=== PATIENT | female | born 1980 | race Caucasian/White ===

== ENCOUNTER → 2018-06-11 | Outpatient (CLI) | payer OTHER ==
[2018-06-11 10:08] LABS: BASOPHILS % (AUTO) 0.3 % (0.0-2.0); EOSINOPHILS % (AUTO) 0.9 % (1.0-6.0); HEMATOCRIT 38.6 % (36-46); HEMOGLOBIN 12.8 g/dL (12.0-16.0); LYMPHOCYTES # (AUTO) 2.1 K/uL (1.0-4.8); MEAN CORPUSCULAR HEMOGLOBIN 29.9 pg (26.0-34.0); MEAN CORPUSCULAR HGB CONC 33.1 G/dL (31.0-37.0); MEAN CORPUSCULAR VOLUME 91 fL (80-100); MONOCYTES # (AUTO) 0.6 K/uL (0.1-1.0); NEUTROPHILS # (AUTO) 6.8 K/uL (1.8-7.7); NEUTROPHILS % (AUTO) 70.8 % (40.0-70.0); PLATELET COUNT (AUTO) 239 K/uL (150-450); RED BLOOD CELL COUNT(AUTO) 4.26 MIL/uL (4.00-5.20); RED CELL DISTRIBUTION WIDTH 14.5 % (11.5-14.5)
[2018-06-11 10:29] LABS: FOLATE SERUM 13.1 ng/mL (5.4-)
[2018-06-11 10:48] LABS: ALANINE AMINOTRANSFERASE 10 U/L (12-78); ALBUMIN 3.3 g/dL (3.4-5.0); ALKALINE PHOSPHATASE 75 U/L (46-116); ANION GAP 11 mmol/L (8-16); ASPARTATE AMINOTRANSFERASE 24 U/L (15-37); BILIRUBIN,TOTAL 0.3 mg/dL (0.1-1.0); CALCIUM, TOTAL 9.1 mg/dL (8.8-10.5); CARBON DIOXIDE 24 mmol/L (22-29); CHLORIDE 101 mmol/L (98-107); CHOL/HDL RATIO 2.9 (3.9-5.7); CHOLESTEROL 231 mg/dL (131-200); CREATININE 0.64 mg/dL (0.60-1.30); GLOMERULAR FILTR. RATE CALC > 60 mL/min (>60); GLUCOSE,RANDOM 75 mg/dL (70-110); HCG,QUANTITATIVE 38821 mIU/mL (0-6); HDL CHOLESTEROL 79 mg/dL (40-60); LDL CHOL (CALC.) 134 mg/dL (0-130); POTASSIUM 4.1 mmol/L (3.5-5.1); SODIUM SERUM 136 mmol/L (136-145); THYROID STIMULATING HORMONE 2.71 uIU/mL (0.36-3.74); TOTAL PROTEIN, SERUM 7.4 g/dL (6.4-8.2); TRIGLYCERIDES 89 mg/dL (15-150); UREA NITROGEN, BLOOD 9 mg/dL (7-18)
== END | disposition home or self-care (01) ==
LOC: LABPV 07:06
PROVIDERS: ATTEND Legal Medicine
DX: Z34.00 Encounter for supervision of normal first pregnancy, unspecified trimester (principal)
CPT/HCPCS: 82306; 82607; 82746; 84443

== ENCOUNTER 2018-06-21 09:14 | Emergency (ER) | payer OTHER ==
[~2018-06-21] VITALS: Ht 170.2 cm; Wt 68.2 kg
[2018-06-21] MEDS ORDERED: PNV11TAB PO (09:26)
[2018-06-21] MEDS ORDERED: CHOL50004 PO (09:26)
[2018-06-21] MEDS ORDERED: FOLI0.4T14 PO (09:26)
[2018-06-21 12:22] VITALS: BP 125/68
== END 2018-06-21 12:23 | disposition home or self-care (01) ==
LOC: EMS 09:15
DX: O26.892 Other specified pregnancy related conditions, second trimester (principal); R10.9 Unspecified abdominal pain; R06.02 Shortness of breath; Z77.098 Contact with and (suspected) exposure to other hazardous, chiefly nonmedicinal, chemicals; Z3A.17 17 weeks gestation of pregnancy
CPT/HCPCS: 76805

== ENCOUNTER → 2018-07-18 | Outpatient (CLI) | payer OTHER ==
[~2018-07-18] MED LIST: CHOL50004 PO; FOLI0.4T14 PO; PNV11TAB PO
[2018-07-18 09:56] LABS: BASOPHILS % (AUTO) 0.4 % (0.0-2.0); EOSINOPHILS % (AUTO) 0.6 % (1.0-6.0); HEMATOCRIT 36.1 % (36-46); HEMOGLOBIN 11.8 g/dL (12.0-16.0); LYMPHOCYTES # (AUTO) 1.8 K/uL (1.0-4.8); LYMPHOCYTES % (AUTO) 19.1 % (22.0-44.0); MEAN CORPUSCULAR HEMOGLOBIN 29.5 pg (26.0-34.0); MEAN CORPUSCULAR HGB CONC 32.6 G/dL (31.0-37.0); MEAN CORPUSCULAR VOLUME 91 fL (80-100); MONOCYTES # (AUTO) 0.5 K/uL (0.1-1.0); NEUTROPHILS # (AUTO) 6.9 K/uL (1.8-7.7); NEUTROPHILS % (AUTO) 74.9 % (40.0-70.0); PLATELET COUNT (AUTO) 238 K/uL (150-450); RED BLOOD CELL COUNT(AUTO) 3.98 MIL/uL (4.00-5.20); RED CELL DISTRIBUTION WIDTH 14.6 % (11.5-14.5)
[2018-07-18 10:15] LABS: BILIRUBIN,URINE NEGATIVE (NEGATIVE); GLUCOSE, URINE (UA) NEGATIVE (NEGATIVE); KETONES,URINE NEGATIVE (NEGATIVE); LEUKOCYTE ESTERASE ,URINE NEGATIVE (NEGATIVE); NITRATE,URINE NEGATIVE (NEGATIVE); OCCULT BLOOD,URINE NEGATIVE (NEGATIVE); PH,URINE 8.5 (5.0-8.0); PROTEIN,URINE NEGATIVE (NEGATIVE)
[2018-07-18 10:36] LABS: APPEARANCE,URINE CLEAR (CLEAR)
[2018-07-18 16:29] LABS: RAPID PLASMA REAGIN NONREACTIVE (NONREACTIVE)
[2018-07-18 16:44] LABS: RUBELLA SCREEN (IGG) IMMUNE (IMMUNE)
[2018-07-19 08:15] LABS: HIV 1-2 SCREEN 4TH GEN W/RFLX Non Reactive (Non Reactive)
== END | disposition home or self-care (01) ==
LOC: LABPV 08:24
PROVIDERS: ATTEND Obstetrics & Gynecology
DX: Z34.82 Encounter for supervision of other normal pregnancy, second trimester (principal); Z31.430 Encounter of female for testing for genetic disease carrier status for procreative management; Z3A.15 15 weeks gestation of pregnancy
CPT/HCPCS: 83021; 84443; 86592; 86762; 86787; 86850; 86900; 86901; 87086; 87340; 87389

== ENCOUNTER 2018-10-04 12:35 | Observation (INO) | payer OTHER ==
[~2018-10-04] VITALS: Ht 162 cm; Wt 68.5 kg
== END 2018-10-04 14:15 | disposition home or self-care (01) ==
LOC: 4S 12:35 → EEVIPCON 12:35
PROVIDERS: ADMIT Obstetrics & Gynecology; ATTEND Obstetrics & Gynecology
DX: O09.523 Supervision of elderly multigravida, third trimester (principal); Z3A.32 32 weeks gestation of pregnancy
CPT/HCPCS: 36415; 81002; 83036; G0378

== ENCOUNTER 2018-10-11 13:00 | Observation (INO) | payer OTHER ==
[~2018-10-11] VITALS: Ht 162.6 cm; Wt 69.9 kg
[2018-10-11 13:44] VITALS: BP 101/58
== END 2018-10-11 14:05 | disposition home or self-care (01) ==
LOC: 4S 13:00
PROVIDERS: ADMIT Obstetrics & Gynecology; ATTEND Obstetrics & Gynecology
DX: O09.523 Supervision of elderly multigravida, third trimester (principal); Z3A.33 33 weeks gestation of pregnancy
CPT/HCPCS: 81002; G0378

== ENCOUNTER 2018-10-18 15:45 | Observation (INO) | payer OTHER ==
[~2018-10-18] VITALS: Ht 162.6 cm; Wt 68.9 kg
[2018-10-18] MEDS: RINGERS SOLUTION,LACTATED 1,000 ML IV SCH ×2 (18:29→20:56)
[2018-10-18 19:15] LABS: GLUCOMETER DEV NAME(LOC) 4S.; GLUCOSE,POINT OF CARE 69 MG/DL (70-110)
[2018-10-18] MEDS ORDERED: NIFEdipine 10 MG CAPSULE PO ONE ×2 (19:45→23:00)
[2018-10-18] MEDS: BETAMETHASONE SOLUSPAN 6 MG/ML 5 ML VIAL IM SCH (21:36)
[2018-10-19] MEDS ORDERED: NIFEdipine 10 MG CAPSULE PO ONE ×3 (03:00→08:15)
[2018-10-19] MEDS: RINGERS SOLUTION,LACTATED 1,000 ML IV SCH ×3 (03:50→12:37)
[2018-10-19 07:40] LABS: GLUCOMETER DEV NAME(LOC) 4S.; GLUCOSE,POINT OF CARE 137 MG/DL (70-110)
[2018-10-19 07:40] LABS: GLUCOMETER DEV NAME(LOC) 4S.; GLUCOSE,POINT OF CARE 102 MG/DL (70-110)
[2018-10-19] MEDS: BETAMETHASONE SOLUSPAN 6 MG/ML 5 ML VIAL IM SCH (10:38)
[2018-10-19 10:56] LABS: GLUCOMETER DEV NAME(LOC) 4S.; GLUCOSE,POINT OF CARE 98 MG/DL (70-110)
[2018-10-19 14:15] LABS: GLUCOMETER DEV NAME(LOC) 4S.; GLUCOSE,POINT OF CARE 125 MG/DL (70-110)
== END 2018-10-19 17:45 | disposition home or self-care (01) ==
LOC: INTOOBSV 15:45 → OBSVTOIN 15:45 → 4S 15:45
PROVIDERS: ADMIT Obstetrics & Gynecology; ATTEND Obstetrics & Gynecology
DX: O62.9 Abnormality of forces of labor, unspecified (principal); O09.523 Supervision of elderly multigravida, third trimester; O60.03 Preterm labor without delivery, third trimester; Z3A.35 35 weeks gestation of pregnancy
CPT/HCPCS: 76805; 81002; 82962 ×2; 96372 ×2; G0378 ×2; J0702 ×2; J7120 ×2

== ENCOUNTER 2018-10-22 12:50 | Observation (INO) | payer OTHER ==
[~2018-10-22] VITALS: Ht 162.6 cm; Wt 69.9 kg
[2018-10-22 13:25] LABS: GLUCOMETER DEV NAME(LOC) 4S.; GLUCOSE,POINT OF CARE 71 MG/DL (70-110)
[2018-10-22 13:32] VITALS: BP 106/66
== END 2018-10-22 14:10 | disposition home or self-care (01) ==
LOC: 4S 12:50
PROVIDERS: ADMIT Obstetrics & Gynecology; ATTEND Obstetrics & Gynecology
DX: O62.9 Abnormality of forces of labor, unspecified (principal); O09.523 Supervision of elderly multigravida, third trimester; Z3A.35 35 weeks gestation of pregnancy
CPT/HCPCS: 81002; 82962; G0378

== ENCOUNTER 2018-10-29 19:17 | Observation (INO) | payer OTHER ==
[~2018-10-29] VITALS: Ht 162 cm; Wt 68.0 kg
[2018-10-29 19:39] VITALS: BP 102/58
== END 2018-10-29 20:20 | disposition home or self-care (01) ==
LOC: 4S 19:17
PROVIDERS: ADMIT Obstetrics & Gynecology; ATTEND Obstetrics & Gynecology
DX: O09.523 Supervision of elderly multigravida, third trimester (principal); Z3A.36 36 weeks gestation of pregnancy
CPT/HCPCS: 81002; G0378

== ENCOUNTER 2018-11-05 10:22 | Observation (INO) | payer OTHER ==
[~2018-11-05] VITALS: Ht 162.6 cm; Wt 68.9 kg
== END 2018-11-05 20:25 | disposition home or self-care (01) ==
LOC: 4S 10:22
PROVIDERS: ADMIT Obstetrics & Gynecology; ATTEND Obstetrics & Gynecology
DX: O62.9 Abnormality of forces of labor, unspecified (principal); O09.523 Supervision of elderly multigravida, third trimester; Z3A.37 37 weeks gestation of pregnancy
CPT/HCPCS: 81002; G0378

== ENCOUNTER 2018-11-11 22:16 | Inpatient (IN) | payer OTHER ==
[~2018-11-11] VITALS: Ht 162.6 cm; Wt 70.3 kg
[2018-11-11] MEDS ORDERED: RINGERS SOLUTION,LACTATED 1,000 ML IV SCH (23:49)
[2018-11-11] MEDS ORDERED: RINGERS SOLUTION,LACTATED 1,000 ML IV PRN (23:49)
[2018-11-11] MEDS ORDERED: OXYTOCIN 30 UNITS/LACT RINGERS 500 ML IV ONE (23:49)
[2018-11-11] MEDS ORDERED: OXYTOCIN 30 UNITS/LACT RINGERS 500 ML IV PRN (23:49)
[2018-11-11 23:57] VITALS: BP 115/79
[2018-11-12] MEDS ORDERED: AMPICILLIN SODIUM 2 GM/NS 100 ML IV ONE
[2018-11-12] MEDS ORDERED: METOCLOPRAMIDE HCL 5 MG/ML 2 ML VIAL IVP PRN
[2018-11-12] MEDS ORDERED: METHYLERGONOVINE MALEATE 0.2 MG/ML VIAL IM PRN
[2018-11-12] MEDS ORDERED: MISOPROSTOL 100 MCG TABLET PR PRN
[2018-11-12] MEDS ORDERED: CITRIC ACID/SODIUM CITRATE 30 ML SOLUTION UDCUP PO PRN
[2018-11-12] MEDS ORDERED: CARBOPROST TROMETHAMINE 250 MCG/ML AMP IM PRN
[2018-11-12 00:46] LABS: BASOPHILS % (AUTO) 0.7 % (0.0-2.0); EOSINOPHILS % (AUTO) 0.6 % (1.0-6.0); HEMATOCRIT 32.4 % (36-46); HEMOGLOBIN 10.2 g/dL (12.0-16.0); LYMPHOCYTES # (AUTO) 2.3 K/uL (1.0-4.8); LYMPHOCYTES % (AUTO) 20.4 % (22.0-44.0); MEAN CORPUSCULAR HEMOGLOBIN 26.5 pg (26.0-34.0); MEAN CORPUSCULAR HGB CONC 31.6 G/dL (31.0-37.0); MEAN CORPUSCULAR VOLUME 84 fL (80-100); MONOCYTES # (AUTO) 0.7 K/uL (0.1-1.0); MONOCYTES % (AUTO) 6.4 % (2.0-9.0); NEUTROPHILS # (AUTO) 8.1 K/uL (1.8-7.7); NEUTROPHILS % (AUTO) 71.9 % (40.0-70.0); PLATELET COUNT (AUTO)-OB 231 K/uL (150-450); RED BLOOD CELL COUNT(AUTO) 3.86 MIL/uL (4.00-5.20); RED CELL DISTRIBUTION WIDTH 14.4 % (11.5-14.5)
[2018-11-12 01:25] LABS: GLUCOMETER DEV NAME(LOC) 4S.; GLUCOSE,POINT OF CARE 71 MG/DL (70-110)
[2018-11-12] MEDS: AMPICILLIN SODIUM 1 GM/NS 50 ML IV SCH ×2 (04:11→08:06)
[2018-11-12] MEDS ORDERED: ROPIVACAINE HCL/PF 0.2% 100 ML ED ONE (05:02)
[2018-11-12] MEDS ORDERED: OXYTOCIN 30 UNITS/LACT RINGERS 500 ML IV PRN (06:00)
[2018-11-12] MEDS ORDERED: DiphenhydrAMINE HCL 50 MG/ML VIAL IVP PRN (06:00)
[2018-11-12] MEDS ORDERED: ROPIVACAINE HCL/PF 0.2% 100 ML ED PRN (06:00)
[2018-11-12] MEDS ORDERED: ONDANSETRON HCL 4 MG/2 ML VIAL IVP PRN (06:00)
[2018-11-12] MEDS ORDERED: OXYGEN THERAPY IH SCH (08:00)
[2018-11-12] MEDS ORDERED: MINERAL OIL 90 ML BOTTLE TP STA (09:11)
[2018-11-12] MEDS ORDERED: MINERAL OIL 30 ML UDCUP VG ONE (10:00)
[2018-11-12] MEDS ORDERED: MINERAL OIL 30 ML UDCUP ONE (10:04)
[2018-11-12] MEDS ORDERED: OXYTOCIN 30 UNITS/LACT RINGERS 500 ML IV ONE (10:37)
[2018-11-12] MEDS ORDERED: OxyCODONE HCL/ACETAMINOPHEN 5-325 MG TABLET PO PRN (10:45)
[2018-11-12] MEDS ORDERED: LIDOCAINE/PF 1% 30 ML VIAL INJ PRN ×2 (10:45)
[2018-11-12] MEDS ORDERED: LANOLIN 7 GM OINTMENT TP PRN (10:45)
[2018-11-12] MEDS ORDERED: BENZOCAINE 20%/MENTHOL 56 GM SPRAY CANISTER TP PRN (10:45)
[2018-11-12] MEDS ORDERED: MAGNESIUM HYDROXIDE SUSPENSION 30 ML UDCUP PO PRN (10:45)
[2018-11-12] MEDS: IBUPROFEN 800 MG TABLET PO PRN ×2 (14:08→20:24)
[2018-11-12] MEDS: GLYCERIN/WITCH HAZEL LEAF 40 PADS JAR TP PRN (14:08)
[2018-11-12] MEDS: OxyCODONE HCL/ACETAMINOPHEN 5-325 MG TABLET PO PRN (20:25)
[2018-11-12] MEDS: PHENYLEPHRINE/SHK LV/MIN OIL/PET 57 GM OINTMENT TP SCH (22:35)
[2018-11-13] MEDS: IBUPROFEN 800 MG TABLET PO PRN ×2 (02:19→08:39)
[2018-11-13] MEDS: OxyCODONE HCL/ACETAMINOPHEN 5-325 MG TABLET PO PRN ×2 (02:19→08:39)
[2018-11-13 05:34] LABS: BASOPHILS % (AUTO) 0.2 % (0.0-2.0); EOSINOPHILS % (AUTO) 0.7 % (1.0-6.0); HEMATOCRIT 31.1 % (36-46); HEMOGLOBIN 10.1 g/dL (12.0-16.0); LYMPHOCYTES # (AUTO) 2.2 K/uL (1.0-4.8); LYMPHOCYTES % (AUTO) 22.1 % (22.0-44.0); MEAN CORPUSCULAR HEMOGLOBIN 26.9 pg (26.0-34.0); MEAN CORPUSCULAR HGB CONC 32.4 G/dL (31.0-37.0); MEAN CORPUSCULAR VOLUME 83 fL (80-100); MONOCYTES # (AUTO) 0.7 K/uL (0.1-1.0); MONOCYTES % (AUTO) 6.8 % (2.0-9.0); NEUTROPHILS % (AUTO) 70.2 % (40.0-70.0); PLATELET COUNT (AUTO)-OB 221 K/uL (150-450); RED BLOOD CELL COUNT(AUTO) 3.75 MIL/uL (4.00-5.20); RED CELL DISTRIBUTION WIDTH 14.9 % (11.5-14.5)
[2018-11-13] MEDS: PHENYLEPHRINE/SHK LV/MIN OIL/PET 57 GM OINTMENT TP SCH (07:29)
[2018-11-13] MEDS: GLYCERIN/WITCH HAZEL LEAF 40 PADS JAR TP PRN (08:39)
[2018-11-13] MEDS ORDERED: DSS100 PO (10:55)
[2018-11-13] MEDS ORDERED: FERR-89 PO (10:55)
[2018-11-13] MEDS ORDERED: IBUP-2071 PO (10:55)
== END 2018-11-13 12:45 | disposition home or self-care (01) | DRG 807 ==
LOC: 4S 22:16 → PREOBSVTOIN 11-20 23:35
PROVIDERS: ADMIT Obstetrics & Gynecology; ATTEND Obstetrics & Gynecology
PROC: 10E0XZZ Delivery of Products of Conception, External Approach (ICD-10-PCS; principal; 2018-11-12)
PROC: 0KQM0ZZ Repair Perineum Muscle, Open Approach (ICD-10-PCS; 2018-11-12)
PROC: 10907ZC Drainage of Amniotic Fluid, Therapeutic from Products of Conception, Via Natural or Artificial Opening (ICD-10-PCS; 2018-11-12)
PROC: 3E0R3BZ Introduction of Anesthetic Agent into Spinal Canal, Percutaneous Approach (ICD-10-PCS; 2018-11-12)
PROC: 00HU33Z Insertion of Infusion Device into Spinal Canal, Percutaneous Approach (ICD-10-PCS; 2018-11-12)
DX: O69.81X0 Labor and delivery complicated by cord around neck, without compression, not applicable or unspecified (principal); Z37.0 Single live birth; O70.1 Second degree perineal laceration during delivery; Z3A.38 38 weeks gestation of pregnancy
CPT/HCPCS: 86850; 86900; 86901; J0290; J2590; J2795; J7120

== ENCOUNTER → 2021-09-13 | Outpatient (CLI) | payer OTHER ==
[~2021-09-13] MED LIST changes: +CHOL500013 PO; -CHOL50004 PO; +DSS100 PO; +FERR325T27 PO; -FOLI0.4T14 PO; +FOLI0.4T6 PO; +IBUP-2071 PO
[2021-09-13 09:06] LABS: BASOPHILS % (AUTO) 0.7 % (0.0-2.0); EOSINOPHILS % (AUTO) 1.7 % (1.0-6.0); HEMATOCRIT 41.6 % (36-46); HEMOGLOBIN 13.9 g/dL (12.0-16.0); LYMPHOCYTES # (AUTO) 1.7 K/uL (1.0-4.8); LYMPHOCYTES % (AUTO) 30.4 % (22.0-44.0); MEAN CORPUSCULAR HEMOGLOBIN 30.4 pg (26.0-34.0); MEAN CORPUSCULAR HGB CONC 33.5 G/dL (31.0-37.0); MEAN CORPUSCULAR VOLUME 91 fL (80-100); MONOCYTES # (AUTO) 0.3 K/uL (0.1-1.0); MONOCYTES % (AUTO) 6.1 % (2.0-9.0); NEUTROPHILS # (AUTO) 3.4 K/uL (1.8-7.7); NEUTROPHILS % (AUTO) 61.1 % (40.0-70.0); PLATELET COUNT (AUTO) 234 K/uL (150-450); RED BLOOD CELL COUNT(AUTO) 4.59 MIL/uL (4.00-5.20); RED CELL DISTRIBUTION WIDTH 13.7 % (11.5-14.5)
[2021-09-13 09:14] LABS: HEMOGLOBIN A1C 5.6 % (3.8-5.6)
[2021-09-13 09:39] LABS: ALANINE AMINOTRANSFERASE 21 U/L (12-78); ALBUMIN 4.1 g/dL (3.4-5.0); ALKALINE PHOSPHATASE 98 U/L (46-116); ANION GAP 6 mmol/L (8-16); ASPARTATE AMINOTRANSFERASE 17 U/L (15-37); BILIRUBIN,TOTAL 0.6 mg/dL (0.1-1.0); CALCIUM, TOTAL 8.9 mg/dL (8.8-10.5); CARBON DIOXIDE 27 mmol/L (22-29); CHLORIDE 103 mmol/L (98-107); CHOL/HDL RATIO 2.9 (3.9-5.7); CHOLESTEROL 194 mg/dL (131-200); CREATININE 0.83 mg/dL (0.60-1.30); GLUCOSE,RANDOM 90 mg/dL (70-110); HDL CHOLESTEROL 66 mg/dL (40-60); LDL CHOL (CALC.) 113 mg/dL (0-130); SODIUM SERUM 136 mmol/L (136-145); THYROID STIMULATING HORMONE 2.38 uIU/mL (0.36-3.74); TOTAL PROTEIN, SERUM 7.6 g/dL (6.4-8.2); TRIGLYCERIDES 76 mg/dL (15-150)
[2021-09-13 09:40] LABS: GLOMERULAR FILTR. RATE CALC > 60 mL/min (>60)
[2021-09-13 09:52] LABS: FOLATE SERUM 20.3 ng/mL (5.4-)
[2021-09-13 10:00] LABS: UREA NITROGEN, BLOOD 8 mg/dL (7-18)
== END | disposition home or self-care (01) ==
LOC: LABMN 08:39
PROVIDERS: ATTEND Legal Medicine
DX: Z00.00 Encounter for general adult medical examination without abnormal findings (principal)
CPT/HCPCS: 80053; 80061; 82306; 82607; 82746; 83036; 84443; 85025

== ENCOUNTER → 2022-10-04 | Outpatient (CLI) | payer OTHER ==
[~2022-10-04] MED LIST changes: +IBUP-1493 PO; -IBUP-2071 PO
[2022-10-04 09:54] LABS: BASOPHILS % (AUTO) 0.8 % (0.0-2.0); EOSINOPHILS % (AUTO) 1.3 % (1.0-6.0); HEMATOCRIT 41.4 % (36-46); HEMOGLOBIN 13.7 g/dL (12.0-16.0); LYMPHOCYTES # (AUTO) 1.8 K/uL (1.0-4.8); LYMPHOCYTES % (AUTO) 33.7 % (22.0-44.0); MEAN CORPUSCULAR HEMOGLOBIN 31.4 pg (26.0-34.0); MEAN CORPUSCULAR HGB CONC 33.2 G/dL (31.0-37.0); MEAN CORPUSCULAR VOLUME 95 fL (80-100); MONOCYTES # (AUTO) 0.4 K/uL (0.1-1.0); MONOCYTES % (AUTO) 7.6 % (2.0-9.0); NEUTROPHILS % (AUTO) 56.6 % (40.0-70.0); PLATELET COUNT (AUTO) 220 K/uL (150-450); RED BLOOD CELL COUNT(AUTO) 4.37 MIL/uL (4.00-5.20); RED CELL DISTRIBUTION WIDTH 13.7 % (11.5-14.5)
[2022-10-04 10:07] LABS: HEMOGLOBIN A1C 5.2 % (3.8-5.6)
[2022-10-04 10:17] LABS: ALANINE AMINOTRANSFERASE 19 U/L (12-78); ALBUMIN 3.8 g/dL (3.4-5.0); ALKALINE PHOSPHATASE 107 U/L (46-116); ANION GAP 3 mmol/L (8-16); ASPARTATE AMINOTRANSFERASE 23 U/L (15-37); BILIRUBIN,TOTAL 1.1 mg/dL (0.1-1.0); CALCIUM, TOTAL 8.7 mg/dL (8.8-10.5); CARBON DIOXIDE 28 mmol/L (22-29); CHLORIDE 101 mmol/L (98-107); CHOL/HDL RATIO 2.6 (3.9-5.7); CHOLESTEROL 197 mg/dL (131-200); CREATININE 0.66 mg/dL (0.60-1.30); GLOMERULAR FILTR. RATE CALC > 60 mL/min (>60); GLUCOSE,RANDOM 90 mg/dL (70-110); HDL CHOLESTEROL 76 mg/dL (40-60); LDL CHOL (CALC.) 110 mg/dL (0-130); POTASSIUM 3.9 mmol/L (3.5-5.1); SODIUM SERUM 132 mmol/L (136-145); THYROID STIMULATING HORMONE 2.05 uIU/mL (0.36-3.74); TOTAL PROTEIN, SERUM 7.4 g/dL (6.4-8.2); TRIGLYCERIDES 53 mg/dL (15-150)
[2022-10-04 10:53] LABS: FOLATE SERUM 13.7 ng/mL (5.4-)
== END | disposition home or self-care (01) ==
LOC: LABMN 09:32
PROVIDERS: ATTEND Legal Medicine
DX: Z00.00 Encounter for general adult medical examination without abnormal findings (principal)
CPT/HCPCS: 80053; 80061; 82306; 82607; 82746; 83036; 84443; 85025

== ENCOUNTER 2022-12-07 16:34 | Emergency (ER) | payer OTHER ==
[~2022-12-07] VITALS: Ht 162.6 cm; Wt 65.9 kg
[2022-12-07 16:42] VITALS: TEMP 98.4
[2022-12-07 18:51] VITALS: BP 110/71; PULSE 71; RESP 18
== END 2022-12-07 18:52 | disposition home or self-care (01) ==
LOC: EMS 16:35
DX: U07.1 COVID-19 (principal); Z79.899 Other long term (current) drug therapy
CPT/HCPCS: 71045; 99283

== ENCOUNTER → 2023-03-02 | Outpatient (CLI) | payer OTHER ==
[2023-03-02 12:13] LABS: BASOPHILS % (AUTO) 0.8 % (0.0-2.0); EOSINOPHILS % (AUTO) 0.7 % (1.0-6.0); HEMATOCRIT 39.2 % (36-46); HEMOGLOBIN 13.3 g/dL (12.0-16.0); LYMPHOCYTES # (AUTO) 1.5 K/uL (1.0-4.8); LYMPHOCYTES % (AUTO) 32.8 % (22.0-44.0); MEAN CORPUSCULAR HEMOGLOBIN 32.1 pg (26.0-34.0); MEAN CORPUSCULAR VOLUME 95 fL (80-100); MONOCYTES # (AUTO) 0.4 K/uL (0.1-1.0); MONOCYTES % (AUTO) 8.6 % (2.0-9.0); NEUTROPHILS # (AUTO) 2.6 K/uL (1.8-7.7); NEUTROPHILS % (AUTO) 57.1 % (40.0-70.0); PLATELET COUNT (AUTO) 195 K/uL (150-450); RED BLOOD CELL COUNT(AUTO) 4.15 MIL/uL (4.00-5.20); RED CELL DISTRIBUTION WIDTH 13.9 % (11.5-14.5); WHITE BLOOD COUNT (AUTO) 4.6 K/uL (4.5-11.0)
== END | disposition home or self-care (01) ==
LOC: MSR 11:38
PROVIDERS: ATTEND Legal Medicine
DX: E55.9 Vitamin D deficiency, unspecified (principal)
CPT/HCPCS: 71046; 82306; 85025; 36415-L1; 36415-TC

== ENCOUNTER → 2023-06-27 | Outpatient (CLI) | payer OTHER ==
[2023-06-27 10:43] LABS: BASOPHILS % (AUTO) 0.4 % (0.0-2.0); EOSINOPHILS % (AUTO) 0.9 % (1.0-6.0); HEMATOCRIT 42.6 % (36-46); HEMOGLOBIN 14.3 g/dL (12.0-16.0); LYMPHOCYTES # (AUTO) 1.6 K/uL (1.0-4.8); LYMPHOCYTES % (AUTO) 27.1 % (22.0-44.0); MEAN CORPUSCULAR HEMOGLOBIN 31.7 pg (26.0-34.0); MEAN CORPUSCULAR HGB CONC 33.6 G/dL (31.0-37.0); MEAN CORPUSCULAR VOLUME 94 fL (80-100); MONOCYTES # (AUTO) 0.5 K/uL (0.1-1.0); MONOCYTES % (AUTO) 9.3 % (2.0-9.0); NEUTROPHILS # (AUTO) 3.6 K/uL (1.8-7.7); NEUTROPHILS % (AUTO) 62.3 % (40.0-70.0); PLATELET COUNT (AUTO) 220 K/uL (150-450); RED BLOOD CELL COUNT(AUTO) 4.51 MIL/uL (4.00-5.20); RED CELL DISTRIBUTION WIDTH 14.9 % (11.5-14.5); WHITE BLOOD COUNT (AUTO) 5.7 K/uL (4.5-11.0)
[2023-06-27 11:20] LABS: ALANINE AMINOTRANSFERASE 22 U/L (12-78); ALBUMIN 4.5 g/dL (3.4-5.0); ALKALINE PHOSPHATASE 108 U/L (46-116); ANION GAP 8 mmol/L (8-16); ASPARTATE AMINOTRANSFERASE 28 U/L (15-37); BILIRUBIN,TOTAL 0.6 mg/dL (0.1-1.0); CARBON DIOXIDE 28 mmol/L (22-29); CHLORIDE 102 mmol/L (98-107); CREATININE 0.72 mg/dL (0.60-1.30); GLOMERULAR FILTR. RATE CALC > 60 mL/min (>60); GLUCOSE,RANDOM 96 mg/dL (70-110); POTASSIUM 3.8 mmol/L (3.5-5.1); SODIUM SERUM 138 mmol/L (136-145); TOTAL PROTEIN, SERUM 8.1 g/dL (6.4-8.2); UREA NITROGEN, BLOOD 11 mg/dL (7-18)
[2023-06-28 08:06] LABS: FOLLICLE STIMULATING HORMONE 5.6 mIU/mL
== END | disposition home or self-care (01) ==
LOC: LABMN 09:50
PROVIDERS: ATTEND Obstetrics & Gynecology
DX: N92.6 Irregular menstruation, unspecified (principal)
CPT/HCPCS: 80053; 82670; 83001; 83002; 84403; 84443; 84481; 85025

== ENCOUNTER → 2023-06-29 | Outpatient (CLI) | payer OTHER | END | disposition home or self-care (01) | LOC: RADPV 09:34 | PROVIDERS: ATTEND Obstetrics & Gynecology | DX: N92.6 Irregular menstruation, unspecified (principal) | CPT/HCPCS: 76856 ==

== ENCOUNTER 2024-12-07 17:10 | Emergency (ER) | payer OTHER ==
[~2024-12-07] VITALS: Ht 152.4 cm; Wt 59.1 kg
[~2024-12-07 17:10] MED LIST changes: +ACET-66 PO; +DIPH-1130 PO; +ONDA-104 PO
[2024-12-07 17:17] VITALS: BP 114/65; PULSE 88; RESP 18; TEMP 98.1; O2SAT 99
== END 2024-12-07 18:21 | disposition home or self-care (01) ==
LOC: EMS 17:10
DX: S90.122A Contusion of left lesser toe(s) without damage to nail, initial encounter (principal); Z98.890 Other specified postprocedural states; X58.XXXA Exposure to other specified factors, initial encounter; Y93.54 Activity, bowling; Y92.89 Other specified places as the place of occurrence of the external cause; Y99.8 Other external cause status
CPT/HCPCS: 99283